=== PATIENT | male | born 1970 | race Hispanic/Latino ===

== ENCOUNTER 2020-11-29 21:20 | Emergency (ER) | payer OTHER ==
[~2020-11-29] VITALS: Ht 172.7 cm; Wt 82.6 kg
[2020-11-29] MEDS ORDERED: DiphenhydrAMINE HCL 50 MG/ML VIAL IM ONE (22:00)
[2020-11-29] MEDS ORDERED: DIPHENHYDRAMINE HCL 25 MG CAPSULE PO ONE (22:00)
[2020-11-29] MEDS ORDERED: SOLU-MEDROL 125MG VIAL IVP ONE (22:00)
[2020-11-29] MEDS ORDERED: FAMOTIDINE 20MG TAB PO ONE (22:00)
[2020-11-29] MEDS ORDERED: FAMOTIDINE 20MG VIAL IV ONE (22:00)
[2020-11-29] MEDS ORDERED: SOLU-MEDROL 125MG VIAL IM ONE (22:00)
[2020-11-29 22:25] VITALS: BP 162/98
[2020-11-29] MEDS ORDERED: FEXO180T94 PO (22:48)
[2020-11-29] MEDS ORDERED: PRED20TA3 PO (22:48)
== END 2020-11-29 23:11 | disposition home or self-care (01) ==
LOC: EDH 21:20
DX: R13.10 Dysphagia, unspecified (principal); I10 Essential (primary) hypertension; Z88.0 Allergy status to penicillin; Z79.899 Other long term (current) drug therapy; Z79.52 Long term (current) use of systemic steroids
CPT/HCPCS: 70360; 96372; 99283; J2930; Q0163

== ENCOUNTER 2021-12-01 04:24 | Emergency (ER) | payer BC, OTHER ==
[~2021-12-01] VITALS: Ht 172.7 cm; Wt 80.3 kg
[~2021-12-01 04:24] MED LIST: FEXO180T94 PO; PRED20TA3 PO
[2021-12-01 05:11] LABS: BASOPHILS % (AUTO) 0.2 % (0.0-5.0); HEMATOCRIT 44.9 % (42-54); LYMPHOCYTES % (AUTO) 11.4 % (21.0-51.0); MEAN CORPUSCULAR HEMOGLOBIN 29.4 pg (27.0-33.0); MEAN CORPUSCULAR HGB CONC 34.3 g/dL (32.0-36.0); MEAN CORPUSCULAR VOLUME 85.7 fL (79-99); MONOCYTES % (AUTO) 5.1 % (3.0-13.0); NEUTROPHILS % (AUTO) 82.8 % (40.0-77.0); PLATELET COUNT (AUTO) 364 K/uL (130-400); RED BLOOD CELL COUNT(AUTO) 5.24 MIL/uL (4.50-6.20); RED CELL DISTRIBUTION WIDTH 13.3 % (11.0-15.5); WHITE BLOOD COUNT (AUTO) 10.9 K/uL (4.8-10.8)
[2021-12-01 05:40] LABS: CREATININE 5.3 mg/dL (0.5-1.5); POTASSIUM 4.9 mmol/L (3.5-5.1)
[2021-12-01 05:45] LABS: BILIRUBIN,TOTAL 0.4 mg/dL (0.2-1.0); TOTAL PROTEIN, SERUM 9.4 g/dL (6.0-8.3)
[2021-12-01] MEDS ORDERED: 0.9%NACL 1000ML 1,000 ML IV ONE (08:30)
[2021-12-01 08:43] LABS: APPEARANCE,URINE TURBID (CLEAR); BILIRUBIN,URINE SMALL (NEGATIVE); COLOR,URINE YELLOW (YELLOW); GLUCOSE, URINE (UA) NEGATIVE (NEGATIVE); KETONES,URINE 15 mg/dL (NEGATIVE); LEUKOCYTE ESTERASE ,URINE NEGATIVE (NEGATIVE); NITRATE,URINE NEGATIVE (NEGATIVE); OCCULT BLOOD,URINE SMALL (NEGATIVE); PROTEIN,URINE >=300 mg/dL (NEGATIVE); UROBILINOGEN,URINE 0.2 mg/dL (0.2-1.0)
[2021-12-01 09:01] LABS: BACTERIA,URINE Moderate /HPF (None Seen)
[2021-12-01 09:06] LABS: AMORPHOUS SEDIMENT,UR Moderate /LPF (None Seen)
[2021-12-01 09:07] LABS: CALCIUM OXALATE CRYSTALS,UR Moderate /LPF (None Seen)
[2021-12-01 10:18] VITALS: BP 100/68
== END 2021-12-01 10:59 | disposition home or self-care (01) ==
LOC: EDH 04:24
DX: N17.9 Acute kidney failure, unspecified (principal); E86.0 Dehydration; T46.4X5A Adverse effect of angiotensin-converting-enzyme inhibitors, initial encounter; K21.9 Gastro-esophageal reflux disease without esophagitis; I10 Essential (primary) hypertension; Z88.0 Allergy status to penicillin; Z79.52 Long term (current) use of systemic steroids; Y92.89 Other specified places as the place of occurrence of the external cause
CPT/HCPCS: 36415; 76770; 80053; 81001; 83735; 83880; 84484 ×2; 85025; 87088; 93005; 96360; 99285; J7030

== ENCOUNTER 2024-01-23 05:37 | Day surgery (SDC) | payer OTHER ==
[2024-01-21 11:24] LABS: BASOPHILS # (AUTO) 0.03 K/uL (0.00-0.20); BASOPHILS % (AUTO) 0.4 % (0.0-5.0); EOSINOPHILS # (AUTO) 0.12 K/uL (0.00-0.70); EOSINOPHILS % (AUTO) 1.5 % (0.0-8.0); HEMATOCRIT 42.1 % (42-54); IMMATURE GRANULOCYTE ABSOLUTE 0.03 K/uL (0-1); LYMPHOCYTES # (AUTO) 1.8 K/uL (1.0-4.8); LYMPHOCYTES % (AUTO) 22.1 % (21.0-51.0); MEAN CORPUSCULAR HEMOGLOBIN 28.9 pg (27.0-33.0); MEAN CORPUSCULAR HGB CONC 33.7 g/dL (32.0-36.0); MEAN CORPUSCULAR VOLUME 85.6 fL (79-99); MONOCYTES # (AUTO) 0.5 K/uL (0.1-1.0); MONOCYTES % (AUTO) 6.6 % (3.0-13.0); NEUTROPHILS # (AUTO) 5.6 K/uL (1.8-7.7); PLATELET COUNT (AUTO) 301 K/uL (130-400); RED BLOOD CELL COUNT(AUTO) 4.92 MIL/uL (4.50-6.20); RED CELL DISTRIBUTION WIDTH 12.6 % (11.0-15.5); WHITE BLOOD COUNT (AUTO) 8.1 K/uL (4.8-10.8)
[2024-01-21 11:31] LABS: CREATININE 0.7 mg/dL (0.5-1.3); POTASSIUM 3.9 mmol/L (3.5-5.1)
[2024-01-21 11:44] VITALS: BP 138/96; PULSE 86; RESP 18; TEMP 97.8
[~2024-01-23] VITALS: Ht 172.7 cm; Wt 83.2 kg
[2024-01-23] VITALS (15 sets, daily range): BP systolic 100–147; BP diastolic 71–98; PULSE 80–97; RESP 11–16; TEMP 97.1–98.2
[~2024-01-23 05:37] MED LIST changes: +AMLO-258 PO; +ESOM40CA66 PO; -PRED20TA3 PO; +ROSU10TA72 PO
[2024-01-23] MEDS ORDERED: FAMOTIDINE 20MG VIAL IV ONE (06:35)
[2024-01-23] MEDS ORDERED: acetaMINOPHEN 1,000 MG/100 ML VIAL IV ONE (06:35)
[2024-01-23] MEDS ORDERED: LIDOCAINE PF 100MG/5ML (2%) SYRINGE 5ML ONE (06:43)
[2024-01-23] MEDS ORDERED: proPOFol 10 MG/ML 20ML VIAL IV ONE (06:43)
[2024-01-23] MEDS ORDERED: FENTanyl CITRate PF 50 MCG/1 ML 2ML VIAL ONE (06:44)
[2024-01-23] MEDS: CLINDAMYCIN IVPB 900MG/50ML 50 ML IV ONE (06:44)
[2024-01-23] MEDS: LACTATED RINGERS 1000ML 1,000 ML IV ONE (06:45)
[2024-01-23] MEDS ORDERED: ACET-2079 PO (07:08)
[2024-01-23] MEDS ORDERED: dexaMETHasone SOD PHOSPHATE 10MG/ML 1ML VIAL ONE (07:12)
[2024-01-23] MEDS ORDERED: ONDANSETRON 4MG INJ ONE (07:12)
[2024-01-23] MEDS ORDERED: rocuRONium bROMide 10MG/1ML 5ML VL ONE (07:23)
[2024-01-23] MEDS: BUPIvacaine/PF 0.25% 30ML VIAL IJ ONE (07:32)
== END 2024-01-23 09:28 | disposition home or self-care (01) ==
LOC: DAH 05:37
PROVIDERS: ATTEND Student in an Organized Health Care Education/Training Program
DX: M65.331 Trigger finger, right middle finger (principal); M79.641 Pain in right hand; I10 Essential (primary) hypertension; E78.5 Hyperlipidemia, unspecified; Z90.89 Acquired absence of other organs; Z79.899 Other long term (current) drug therapy
CPT/HCPCS: 80048; 85025; 36415; 26055; J7030; J7120; J3490 ×3; J3010; J1100; J0665; J2001; J2704; J2405; A6223; A4649; A4930; A5120; A4215; A4223; A4222; A4221; A4663; A4600